=== PATIENT | male | born 1980 | race Caucasian/White ===

== ENCOUNTER 2023-07-02 12:27 | Emergency (ER) | payer OTHER, SELFPAY ==
[2023-07-02] VITALS (10 sets, daily range): BP systolic 160–182; BP diastolic 87–110; PULSE 69–80; RESP 18; TEMP 36.7–36.8; O2SAT 97–100; BMI 38.0
[2023-07-02 14:43] LABS: Add Manual Diff / Slide Review NO; Basophils Absolute Auto 100 /uL (0-100); Basophils Percent Auto 0.9 % (0-2); Eosinophils Absolute Auto 200 /uL (0-450); Eosinophils Percent Auto 2.3 % (2-4); Hematocrit 45.5 % (41-53); Hemoglobin 15.5 g/dL (13.5-17.5); Lymphocytes Absolute Auto 3300 /uL (1100-4500); Lymphocytes Percent Auto 30.6 % (25-40); Mean Corpuscular HGB Conc 34.1 % (30-36); Mean Corpuscular Hemoglobin 29.5 PG (26-34); Mean Corpuscular Volume 86.4 fL (80-100); Monocytes Absolute Auto 600 /uL (0-900); Monocytes Percent Auto 5.6 % (3-14); Neutrophils Absolute Auto 6600 /uL (1500-7000); Neutrophils Percent Auto 60.6 % (50-75); Platelet Count 289 X10^3/uL (150-400); Red Blood Cell Count 5.26 X10^6/uL (4.5-5.9); Red Cell Distribution Width 13.7 % (11.6-14.8); White Blood Cell Count 10.9 X10^3/uL (4.5-11.0)
[2023-07-02 15:08] LABS: Alanine Aminotransferase 29 IU/L (<50); Albumin 4.4 g/dL (3.5-5.0); Albumin Globulin Ratio 1.5 (1.0-2.8); Alkaline Phosphatase 64 U/L (38-126); Aspartate Aminotransferase 26 IU/L (17-59); BUN Creatinine Ratio 16.1 (6-22); Bilirubin Total 0.9 mg/dL (0.2-1.3); Blood Urea Nitrogen 14 mg/dL (9-20); Calcium 8.9 mg/dL (8.4-10.2); Carbon Dioxide 29 mmol/L (22-32); Chloride 104 mmol/L (98-107); Estimated Glomerular Filt Rate > 60 mL/min (>60); Globulin 2.9 g/dL (1.7-4.1); Glucose 95 mg/dL (70-100); HEMOLYSIS 16 (0-50); Lipase 56 U/L (23-300); Potassium 3.9 mmol/L (3.4-5.1); Sodium 139 mmol/L (137-145); Total Protein 7.3 g/dL (6.3-8.2)
--- NOTE | 2023-07-02 17:02 | DI.CT.S_ITS ---
PROCEDURE: CT KIDNEY URETER BLADDER (KUB) INDICATIONS: left flank pain TECHNIQUE: Axial sections were acquired from the lung bases to the pubic symphysis. Coronal and sagittal reformats were performed. For radiation dose reduction, the following was used: automated exposure control, adjustment of mA and/or kV according to patient size. COMPARISON: None. FINDINGS: Image quality: Diagnostic. Lower Chest: No significant findings. URINARY: Right Kidney: Tiny 2 mm stone. No hydronephrosis Right Ureter: No hydroureter. Left Kidney: No stones or hydronephrosis. Left Ureter: No hydroureter. Bladder: Normal wall thickness. No stones. ABDOMEN: Liver: No contour-deforming solid mass. Gallbladder: No radiopaque gallstones or wall thickening. Biliary ducts: No biliary dilation. Pancreas: No ductal dilation. Spleen: Size is within normal limits. Adrenal Glands: No adrenal nodules. Stomach and Bowel: Normal colonic caliber, without significant wall thickening. Peritoneum: No abnormal intraperitoneal fluid. No free air. Ventral Wall: No hernia. Abdominal Nodes: No enlarged retroperitoneal or mesenteric lymph nodes. Vessels: Aorta and inferior vena cava are normal in size. PELVIS: Pelvic Organs: Unremarkable. Pelvic Nodes: Unremarkable. Miscellaneous: Left fat containing inguinal hernia. Bones: Unremarkable. IMPRESSION: Small right nonobstructive renal stone. Dictated by: Eldon Gloria M.D. on 07/02/2023 at 17:05 Approved by: Eldon Gloria M.D. on 07/02/2023 at 17:07
[2023-07-02] MEDS: KETOROLAC 30 MG/ML VIAL 15 MG IV (17:17)
--- NOTE | 2023-07-02 19:24 | ED.ABDPAIN ---
HPI - Abdominal Pain General Chief Complaint: Abdominal Pain Stated Complaint: Lower left back pain, dizzy Time Seen by Provider: 07/02/23 17:02 Source: patient Mode of arrival: Ambulatory History of Present Illness HPI narrative: 43-year-old male with no known history of previous kidney stones, has 4 days' duration intermittent left flank pain, in paroxysms, no new injury activities, not worse particularly with movement or bending or twisting. No fevers or chills. No diarrhea, black or red stools. No history of colitis or diverticulitis. He has not had this kind of problem before. Not responsive to [id number] analgesics. Some nausea without emesis. Related Data Previous Rx's Medication Instructions Recorded methocarbamol 500 mg tablet 500 mg PO TID 7 days #21 tabs 07/02/23 naproxen 500 mg tablet 500 mg PO BID 7 days #14 tabs 07/02/23 Allergies Allergy/AdvReac Type Severity Reaction Status Date / Time No Known Allergies Allergy Uncoded 07/02/23 12:41 Patient History Social History Smoking Status: Former smoker Smoking Status: Former smoker Substance Use Type: does not use Exam Narrative Exam Narrative: GENERAL: Well-developed patient, in mild distress. HEAD: Atraumatic. Normocephalic. EYES: Pupils equal round and reactive. Extraocular motions intact. No scleral icterus. No injection or drainage. ENT: Nose without bleeding, purulent drainage. Throat without erythema, tonsillar hypertrophy or exudate. Airway patent. NECK: Trachea midline. Non tender CARDIOVASCULAR: Regular rate and rhythm without murmurs, gallops, or rubs. RESPIRATORY: Clear to auscultation. Breath sounds equal bilaterally. No wheezes, rales, or rhonchi. GASTROINTESTINAL: Abdomen soft, nondistended, some tenderness right lower quadrant and suprapubic. Normal bowel tones. Negative heel tap. Negative psoas sign. Can lift leg without abdominal discomfort. EXTREMITIES: No edema or joint tenderness. BACK: Nontender without deformity or crepitance. No flank tenderness. No midline or paraspinal tenderness thoracic or lumbar. No skin vesicles or erythema posterior trunk NEURO: AOx3. SKIN: No rash or erythema of visible areas Initial Vital Signs Initial Vital Signs: Vital Signs Temperature 98.3 F 07/02/23 12:38 Pulse Rate 80 07/02/23 12:38 Respiratory Rate 18 07/02/23 12:38 Blood Pressure 182/102 H 07/02/23 12:38 Pulse Oximetry 98 07/02/23 12:38 Oxygen Delivery Method Room Air 07/02/23 12:38 Course Orders Ordered: Discontinued Medications Hydromorphone HCl (Hydromorphone 0.5 Mg Inj) 0.5 mg IV NOW ONE Stop: 07/02/23 19:43 Last Admin: 07/02/23 19:49 Dose: Not Given Documented By: STACY Ketorolac Tromethamine (Ketorolac 30 Mg/Ml Vial) 15 mg IV NOW ONE Stop: 07/02/23 17:03 Last Admin: 07/02/23 17:17 Dose: 15 mg Documented By: JB Tramadol HCl (Tramadol 50 Mg Prepack) 1 bottle MISC DIRECTED ONE Stop: 07/02/23 19:40 Last Admin: 07/02/23 19:49 Dose: 1 bottle Documented By: STACY Vital Signs Vital signs: Vital Signs - 8 hr 07/02/23 12:38 Temperature 98.3 F Pulse Rate 80 Respiratory Rate 18 Blood Pressure 182/102 H Pulse Oximetry 98 Oxygen Delivery Method Room Air MDM - Abdominal Pain Lab Data 07/02/23 14:30 07/02/23 14:30 Labs: Lab Results 07/02/23 Range/Units 14:30 WBC 10.9 (4.5-11.0) X10^3/uL RBC 5.26 (4.5-5.9) X10^6/uL Hgb 15.5 (13.5-17.5) g/dL Hct 45.5 (41-53) % MCV 86.4 (80-100) fL MCH 29.5 (26-34) PG MCHC 34.1 (30-36) % RDW 13.7 (11.6-14.8) % Plt Count 289 (150-400) X10^3/uL Neut % (Auto) 60.6 (50-75) % Lymph % (Auto) 30.6 (25-40) % [place] % (Auto) 5.6 (3-14) % Eos % (Auto) 2.3 (2-4) % Baso % (Auto) 0.9 (0-2) % Neut # (Auto) 6600 (3985-7161) /uL Lymph # (Auto) 3300 (4854-6063) /uL [place] # (Auto) 600 (0-900) /uL Eos # (Auto) 200 (0-450) /uL Baso # (Auto) 100 (0-100) /uL Sodium 139 (137-145) mmol/L Potassium 3.9 (3.4-5.1) mmol/L Chloride 104 (98-107) mmol/L Carbon Dioxide 29 (22-32) mmol/L BUN 14 (9-20) mg/dL Creatinine 0.87 (0.66-1.25) mg/dL Estimated GFR > 60 (>60) mL/min BUN/Creatinine Ratio 16.1 (6-22) Glucose 95 (70-100) mg/dL Calcium 8.9 (8.4-10.2) mg/dL Total Bilirubin 0.9 (0.2-1.3) mg/dL AST 26 (17-59) IU/L ALT 29 (<50) IU/L Alkaline Phosphatase 64 (38-126) U/L Total Protein 7.3 (6.3-8.2) g/dL Albumin 4.4 (3.5-5.0) g/dL Globulin 2.9 (1.7-4.1) g/dL Albumin/Globulin Ratio 1.5 (1.0-2.8) Lipase 56 (23-300) U/L Point of care testing: Urine Dip Bedside Urine Glucose Negative Bedside Urine Bilirubin - Negative Bedside Urine Ketone - Negative Urine Specific [place] 1.020 Bedside Urine Occult Blood - Negative Bedside Urine pH 6.0 Bedside Urine Protein - Negative Bedside Urine Urobilinogen - Negative Bedside Urine Nitrite - Negative Bedside Urine Leukocytes - Negative Esterase Imaging Data CT scan - abdomen/pelvis: Radiologist's Impression: [address] [address] [address] Scan Report Signed Patient: Kyler Knox MR#: [id number] : 1980 Acct:[id number] Age/Sex: 43 / M Date of Service: 07/02/23 Loc: ED Accession Number: [id number] Procedure: CT kidney ureter bladder (KUB) Ordering Provider: Jenna Rice D.O. PROCEDURE: CT KIDNEY URETER BLADDER (KUB) INDICATIONS: left flank pain TECHNIQUE: Axial sections were acquired from the lung bases to the pubic symphysis. Coronal and sagittal reformats were performed. For radiation dose reduction, the following was used: automated exposure control, adjustment of mA and/or kV according to patient size. COMPARISON: None. FINDINGS: Image quality: Diagnostic. Lower Chest: No significant findings. URINARY: Right Kidney: Tiny 2 mm stone. No hydronephrosis Right Ureter: No hydroureter. Left Kidney: No stones or hydronephrosis. Left Ureter: No hydroureter. Bladder: Normal wall thickness. No stones. ABDOMEN: Liver: No contour-deforming solid mass. Gallbladder: No radiopaque gallstones or wall thickening. Biliary ducts: No biliary dilation. Pancreas: No ductal dilation. Spleen: Size is within normal limits. Adrenal Glands: No adrenal nodules. Stomach and Bowel: Normal colonic caliber, without significant wall thickening. Peritoneum: No abnormal intraperitoneal fluid. No free air. Ventral Wall: No hernia. Abdominal Nodes: No enlarged retroperitoneal or mesenteric lymph nodes. Vessels: Aorta and inferior vena cava are normal in size. PELVIS: Pelvic Organs: Unremarkable. Pelvic Nodes: Unremarkable. Miscellaneous: Left fat containing inguinal hernia. Bones: Unremarkable. IMPRESSION: Small right nonobstructive renal stone. Dictated by: Eldon Gloria M.D. on 07/02/2023 at 17:05 Approved by: Eldon Gloria M.D. on 07/02/2023 at 17:07 [facility] Narrative Medical decision making narrative: Intermittent left flank pain for the last 4 days, suspicious for ureteral colic by history. Afebrile, sirs screen negative, no tenderness on exam, urinalysis negative, screening labs unremarkable. CT scan shows nonobstructing left renal stone, no hydroureter, no acute kidney changes. There is no tenderness on exam muscular paraspinal lumbar or thoracic, seems less likely musculoskeletal. Could consider recently passed stone. Could consider ball-valve effect symptomatic stone within the ureter. Consider straining urine. Consider follow up with Urology. Take naproxen for the next few days. Home pack tramadol. Follow up with Urology, contact information provided. Discharge Plan Departure Patient Disposition: Home Clinical Impression: Kidney stones, Left flank pain Instructions: DI for Kidney Stones Activity Restrictions/Additional Instructions: Left flank pain intermittent for the last few days, of unclear cause. Unremarkable exam, no tenderness in back musculature, or skin changes on exam. Laboratory studies including urinalysis unremarkable. CT scanning showed a nonobstructing right-sided stone but did not show up on your symptomatic left side. There is no mention of any acute inflammatory conditions and any other abdominal pelvic organs to explain your symptoms. Consider naproxen pain medication. Consider follow up with Urology. You could be passing a small very tiny stone right now that it has not actually visible on CT scan. Or this may be some other problem entirely. Consider musculoskeletal strain, consider trial of Robaxin muscle relaxant. Follow up next 2-3 days with your regular provider. Return to this/nearest emergency department for any change worsening symptoms or any concerns prior Prescriptions: New naproxen 500 mg tablet 500 mg PO BID 7 Days Qty: 14 0RF methocarbamol 500 mg tablet 500 mg PO TID 7 Days Qty: 21 0RF Referrals: Nohemi Villareal MD [Physician] - Eldon Shen MD [Physician] - Kenzie Severino PA-C [Primary Care Provider] - Stand Alone Forms: Patient Portal/API
[2023-07-02] MEDS: TRAMADOL 50 MG PREPACK 1 BOTTLE MISC (19:49)
== END 2023-07-02 20:07 | disposition home or self-care (01) ==
PROVIDERS: Emergency Medicine; Emergency Provider Emergency Medicine; PCP Physician Assistant Medical
DX: N20.0 Calculus of kidney (principal); R10.9 Unspecified abdominal pain; M54.50 Low back pain, unspecified
CPT/HCPCS: 36415; 74176; 80053; 81003; 83690; 85025; 96374; 99284; J1885